=== PATIENT | male | born 1955 | race Caucasian/White ===

== ENCOUNTER 2018-08-20 12:38 | Outpatient (RCR) | payer OTHER ==
[2018-08-20 13:24] LABS: BASOPHILS % (AUTO) 0 % (0-10); EOSINOPHILS # (AUTO) 0.2 10^3/uL (0.0-0.3); EOSINOPHILS % (AUTO) 1 % (0-10); HEMATOCRIT 40 % (40-54); LYMPHOCYTES % (AUTO) 33 % (12-44); MEAN CORPUSCULAR HEMOGLOBIN 31 PG (25-34); MEAN CORPUSCULAR HGB CONC 32 G/DL (32-36); MEAN CORPUSCULAR VOLUME 96 FL (80-99); MONOCYTES # (AUTO) 1.3 X 10^3 (0.0-1.0); MONOCYTES % (AUTO) 11 % (0-12); NEUTROPHILS # (AUTO) 6.5 X 10^3 (1.8-7.8); NEUTROPHILS % (AUTO) 55 % (42-75); PLATELET COUNT 193 10^3/uL (130-400); RED CELL DISTRIBUTION WIDTH 17.6 % (10.0-14.5)
[2018-08-20 13:36] LABS: ALANINE AMINOTRANSFERASE 28 U/L (0-55); ALBUMIN 3.8 GM/DL (3.2-4.5); ALKALINE PHOSPHATASE 125 U/L (40-136); BILIRUBIN,TOTAL 1.5 MG/DL (0.1-1.0); BUN/CREATININE RATIO 18; CALCIUM 9.3 MG/DL (8.5-10.1); CARBON DIOXIDE 27 MMOL/L (21-32); CHLORIDE 101 MMOL/L (98-107); CREATININE SERUM 0.71 MG/DL (0.60-1.30); GFR ESTIMATED > 60; GLUCOSE 87 MG/DL (70-105); POTASSIUM 3.3 MMOL/L (3.6-5.0); SODIUM 137 MMOL/L (135-145)
[2018-09-21] MEDS ORDERED: METO50TA15 PO (09:43)
[2018-09-21] MEDS ORDERED: ASPI-586 PO (09:43)
[2018-09-21] MEDS ORDERED: GABA-488 PO (09:43)
[2018-09-21] MEDS ORDERED: SENN1TAB93 PO (09:43)
[2018-09-21] MEDS ORDERED: CYCL5TAB PO (09:43)
[2018-09-21] MEDS ORDERED: POTA-51 PO (09:43)
[2018-09-21] MEDS ORDERED: ATOR40TA70 PO (09:43)
[2018-09-21] MEDS ORDERED: FURO40TA4 PO (09:43)
[2018-09-21] MEDS ORDERED: TRAM50TA2 PO (09:43)
[2018-09-21] MEDS ORDERED: PANT40TA3 PO (09:43)
[2018-09-21] MEDS ORDERED: LEVO200T6 PO (09:43)
[2018-09-21] MEDS ORDERED: ACET-93 PO (09:43)
[2018-09-21] MEDS ORDERED: HYDR12.56 PO (09:43)
[2018-09-21] MEDS ORDERED: CEPH-507 PO (12:42)
== END 2018-11-18 | disposition home or self-care (01) ==
LOC: ONC 12:38
PROVIDERS: ATTEND Internal Medicine Hematology & Oncology
DX: I25.10 Atherosclerotic heart disease of native coronary artery without angina pectoris (principal); D63.8 Anemia in other chronic diseases classified elsewhere; Z89.511 Acquired absence of right leg below knee; Z89.512 Acquired absence of left leg below knee; Z86.718 Personal history of other venous thrombosis and embolism; Z79.82 Long term (current) use of aspirin; Z79.899 Other long term (current) drug therapy; Z87.891 Personal history of nicotine dependence; Z95.810 Presence of automatic (implantable) cardiac defibrillator
CPT/HCPCS: 36415; 80053; 82728; 83540; 85025; 99214

== ENCOUNTER 2018-09-21 08:57 | Day surgery (SDC) | payer OTHER ==
[~2018-09-21] VITALS: Ht 190.5 cm; Wt 109.5 kg
[2018-09-21] VITALS (11 sets, daily range): BP systolic 82–116; BP diastolic 41–82
[2018-09-21] MEDS ORDERED: HEParin (CATH LAB) 1,000 ML IV ONE (09:00)
[2018-09-21] MEDS ORDERED: NS IV 1000 ML 1,000 ML ONE ×2 (09:00→17:41)
[2018-09-21] MEDS ORDERED: LIDOCAINE 1% INJ 20 ML 20 ML VIAL ONE ×2 (09:00)
[2018-09-21] MEDS ORDERED: NS IV 1000 ML 1,000 ML IV SCH (09:02)
[2018-09-21] MEDS ORDERED: BACITRACIN INJECTION 50,000 UNIT, SODIUM CHLORIDE 0.9% IRRIGATIO 500 ML IR ONE ×2 (09:15)
[2018-09-21] MEDS ORDERED: BACITRACIN 50000 UNITS/500 ML NS IR ONE ×2 (09:30)
[2018-09-21] MEDS ORDERED: CYCL5TAB PO (09:43)
[2018-09-21] MEDS ORDERED: GABA-488 PO (09:43)
[2018-09-21] MEDS ORDERED: POTA-51 PO (09:43)
[2018-09-21] MEDS ORDERED: METO50TA15 PO (09:43)
[2018-09-21] MEDS ORDERED: ASPI-586 PO (09:43)
[2018-09-21] MEDS ORDERED: LEVO200T6 PO (09:43)
[2018-09-21] MEDS ORDERED: TRAM50TA2 PO (09:43)
[2018-09-21] MEDS ORDERED: PANT40TA3 PO (09:43)
[2018-09-21] MEDS ORDERED: SENN1TAB93 PO (09:43)
[2018-09-21] MEDS ORDERED: FURO40TA4 PO (09:43)
[2018-09-21] MEDS ORDERED: HYDR12.56 PO (09:43)
[2018-09-21] MEDS ORDERED: ATOR40TA70 PO (09:43)
[2018-09-21] MEDS ORDERED: ACET-93 PO (09:43)
[2018-09-21] MEDS ORDERED: ceFAZolin INJECTION 2,000 MG ONE (09:46)
[2018-09-21] MEDS ORDERED: NS (IVPB) 50 ML ONE (09:46)
[2018-09-21 09:47] LABS: INR 1.1 (0.8-1.4); PROTHROMBIN TIME PATIENT 14.2 SEC (12.2-14.7)
[2018-09-21] MEDS ORDERED: fentaNYL INJECTION 100 MCG/2 ML AMP ONE ×2 (09:47→10:42)
[2018-09-21] MEDS ORDERED: MIDAZOLAM 5 MG/5 ML (VERSED) VIAL ONE ×2 (09:47→10:39)
[2018-09-21 09:50] LABS: ALANINE AMINOTRANSFERASE 38 U/L (0-55); ALBUMIN 3.9 GM/DL (3.2-4.5); ALKALINE PHOSPHATASE 106 U/L (40-136); BILIRUBIN,TOTAL 1.2 MG/DL (0.1-1.0); BUN/CREATININE RATIO 16; CALCIUM 10.1 MG/DL (8.5-10.1); CARBON DIOXIDE 25 MMOL/L (21-32); CHLORIDE 100 MMOL/L (98-107); CREATININE SERUM 0.75 MG/DL (0.60-1.30); GFR ESTIMATED > 60; GLUCOSE 129 MG/DL (70-105); POTASSIUM 3.8 MMOL/L (3.6-5.0); SODIUM 135 MMOL/L (135-145); TOTAL PROTEIN 7.2 GM/DL (6.4-8.2)
[2018-09-21 10:34] LABS: BASOPHILS % (AUTO) 0 % (0-10); EOSINOPHILS # (AUTO) 0.1 10^3/uL (0.0-0.3); EOSINOPHILS % (AUTO) 1 % (0-10); HEMATOCRIT 45 % (40-54); HEMOGLOBIN 15.1 G/DL (13.3-17.7); LYMPHOCYTES # (AUTO) 3.1 X 10^3 (1.0-4.0); LYMPHOCYTES % (AUTO) 28 % (12-44); MEAN CORPUSCULAR HEMOGLOBIN 30 PG (25-34); MEAN CORPUSCULAR HGB CONC 33 G/DL (32-36); MEAN CORPUSCULAR VOLUME 91 FL (80-99); MEAN PLATELET VOLUME 10.8 FL (7.4-10.4); MONOCYTES # (AUTO) 0.9 X 10^3 (0.0-1.0); MONOCYTES % (AUTO) 8 % (0-12); NEUTROPHILS # (AUTO) 6.7 X 10^3 (1.8-7.8); NEUTROPHILS % (AUTO) 62 % (42-75); PLATELET COUNT 184 10^3/uL (130-400); RED CELL DISTRIBUTION WIDTH 14.9 % (10.0-14.5); WHITE BLOOD COUNT 10.8 10^3/uL (4.3-11.0)
[2018-09-21 10:58] LABS: EOSINOPHILS % (MANUAL) 1 %; LYMPHOCYTES % (MANUAL) 27 %; MONOCYTES % (MANUAL) 9 %; NEUTROPHILS % (MANUAL) 63 %; RBC MORPH NORMAL
[2018-09-21] MEDS ORDERED: NEO/POLY/BAC (NEOSPORIN) OINT 15 GM TUBE ONE (11:04)
[2018-09-21] MEDS ORDERED: proPOfol 200 MG/20 ML (DIPRIVAN) VIAL IV ONE (11:05)
--- NOTE | 2018-09-21 12:17 | Cardiac Procedure Note-CS/ASA ---
Pre-Procedure Note Pre-Op Procedure Note H&P Reviewed The H&P was reviewed, patient examined and no changes noted. Date H&P Reviewed: September 21, 2018 Time H&P Reviewed: 09:00 Conscious Sedation Pre-Proced Time 09:00 ASA Score 3 For ASA 3 and 4: Consider anesthesia and medical clearance. Also, for patients with a history of failed moderate sedation consider anesthesia. Airway Lungs Heart ASA score ASA 1: a normal healthy patient ASA 2: a patient with a mild systemic disease (mid diabetes, controlled hypertension, obesity ASA 3: a patient with a severe systemic disease that limits activity (angina, COPD, prior Myocardial infarction) ASA 4: a patient with an incapacitating disease that is a constant threat to life (CHF, renal failure) ASA 5: a moribund patient not expected to survive 24 hrs. (ruptured aneurysm) ASA 6: a declared brain- patient whose organs are being harvested. For emergent operations, add the letter E after the classification Mallampati Classification Grade 1 Sedation Plan Analgesia, Amnesia, Plan communicated to team members, Discussed options with patient/fam, Discussed risks with patient/fam The patient is an appropriate candidate to undergo the planned procedure, sedation, and anesthesia. The patient immediately re-assessed prior to indication. Pedro Pablo GRANADOS MD September 21, 2018 12:17
--- NOTE | 2018-09-21 12:31 | Anesthesia-Procedure Note ---
Procedures/Interventions Procedure Start/Stop/Diagnosis Date of Procedure: September 21, 2018 Start Time: 12:00 Stop Time: 12:10 SAMUEL/Cardioversion Anesthesia Type: MAC ASA Class: 3 Medications propofol 40 mg IV Monitors and Equipment: Continuous EKG, End Tidal CO2, IV, Pulse Oximeter WELLINGTON ELKINS CRNA September 21, 2018 12:31
--- NOTE | 2018-09-21 12:36 | ICD Implantation ---
Single Chamber ICD Implant DATE OF SERVICE: 09/21/2018 ICD lead extraction, new RV ICD lead placement. CARDIAC ORTHOPEDICS NURSE: Ina Orta MD INDICATION: RV ICD lead dysfunction/possible dislodgment. PREOPERATIVE DIAGNOSES: 1. History of sustained VT. 2. cardiomyopathy. 3. RV ICD lead dysfunction/possible dislodgment. POSTOPERATIVE DIAGNOSES: 1. RV ICD lead extraction and placement of a new RV ICD lead. HISTORY: This is a 63-year-old gentleman with CABG, mitral valve replacement, sustained VT, cardiomyopathy, status post ABSTRACT MANAGER ICD in [place] in June 2018. Recently loss of capture of the RV ICD lead was noted. PROCEDURE PERFORMED: 1. RV ICD lead revision. 2. Pocket revision for ICD. 3. RV ICD lead extraction. 4. New RV ICD lead implantation. 5. DFT testing. COMPLICATIONS: None. ESTIMATED BLOOD LOSS: 20 mL. SPECIMENS: None. ANESTHESIA: Conscious sedation. ORAL ANTICOAGULATION: None. FLUOROSCOPY TIME: 11 minutes. FLUOROSCOPY DOSE: 104 mgy. CONTRAST DOSE: None. PROCEDURE DETAILS: After all the questions were answered, an informed consent was taken. All the risks and complication were explained in detail. The patient was brought to the EP lab. The patient's right and left chest was prepped and draped in the usual sterile fashion. A 2-inch horizontal incision was made 1 cm below the clavicle and dissection carried down to the pectoralis fascia. IV antibiotics were administered prior to first incision. Pocket revision was done. The RV ICD lead was disconnected from the ABSTRACT MANAGER device. The screw was undeployed and the lead was placed in at least 3 different positions however lead dislodgment happened at least once. Other times we found poor sensing and poor RV capture. Therefore we decided to extract the RV ICD lead and put a new ICD lead. The screw was undeployed and under fluoroscopic guidance the ICD lead was explanted. The new ICD lead is a single-coiled ICD lead. The RV lead was inserted across the tricuspid valve to an apical septal portion of the RV. The lead position was checked in [place] and MINOR view. The screw was deployed and lead connected to the programmer operator numerical control. Good sensing and pacing thresholds were obtained. Diaphragmatic pacing was ruled out. The lead was secured with 2-0 Vicryl nonabsorbable sutures. The lead was secured to the underlying muscle and fascia. The new ICD lead was attached to the previous ABSTRACT MANAGER device. A Tyrex antibiotic cover was placed. The device and it was placed in the pocket. Aggressive irrigation with normal saline solution was done. Interrogation of the device revealed good integrity of the leads and connection. The wound was closed using 2 layers. The first layer was an interrupted 2-0 Vicryl. The second layer was an uninterrupted 4-0 Vicryl suture. Half inch Steri-Strips and a small dressing was then applied to the wound. DFT testing was done with anesthesia support. The induction mechanism was a T- shock at 310 ms with 0.6 J.. Good sensing of VF and successful 25 J shock. Charge time 6.2 seconds. Patient tolerated procedure well and did not have any complication. DEVICE INFORMATION: ABSTRACT MANAGER D DTMA 100 CLARIA MRI QUAD CRTD . Model [id number], [id number]. Done 07/10/2018. Right atrial, model number [id number], length 52, serial number [id number], [employer], implant 07/10/2018. Old RV lead product number 6935M 62, serial number [id number], implant 07/10/2018. LV lead model number [id number], length 88, serial number [id number], implant 07/10/2018. New RV lead model number 6935M 62, length 62, serial number [id number], implant date 09/21/2018. INTRAOPERATIVE DEVICE TESTING: RV capture 0.5 V at 0.5 ms. Impedance 672 ohms. R-wave 8.2 MV. DEVICE INTERROGATION IMMEDIATELY POSTOP: RA, P-wave 1.6 mV, pacing impedance 513 ohms, threshold 0.5 V is 0.5 ms. RV, R wave 11.6 mV, impedance 513 ohms, threshold 0.5 V at 0.5 ms. LV impedance 532 ohms. Pacing threshold 1.0 at 0.4 ms. PLAN: The patient will be observed for 23 hours. We will continue with two more dosages of IV antibiotics. We will check a chest x-ray and interrogate the device in the morning. An EKG will be done as well. If everything checks out, the patient will be discharged tomorrow. Ina Orta MD, RS, CCDS Cardiac Electrophysiology Pedro Pablo ORTA MD September 21, 2018 12:36
--- NOTE | 2018-09-21 12:41 | Cardiology Discharge Summary ---
Diagnosis/Chief Complaint Date of Admission 09/21/2018 Date of Discharge 09/22/2018 Admission Diagnosis RV lead dislodgment/RV lead dysfunction Final/Discharge Diagnosis RV ICD lead placement. Cardiomyopathy, CAD, Mitral valve replacement Chief Complaint/HPI Chief Complaint/HPI This is a 63-year-old gentleman with CABG, mitral valve replacement, sustained VT, cardiomyopathy, status post CEMENT WORKER ICD in [place] in June 2018. Recently loss of capture of the RV ICD lead was noted. Discharge Summary Procedures Old RV ICD lead explantation. RV ICD lead implanted. Pocket revision. DFT testing successful. Discharge Physical Examination Unremarkable. Hospital Course Was the Problem List Reviewed?: Yes Stable. Pending Labs Laboratory Tests 09/21/18 09:22: White Blood Count 10.8, Red Blood Count 4.99, Hemoglobin 15.1, Hematocrit 45, Mean Corpuscular Volume 91, Mean Corpuscular Hemoglobin 30, Mean Corpuscular Hemoglobin Concent 33, Red Cell Distribution Width 14.9, Platelet Count 184, Mean Platelet Volume 10.8, Neutrophils (%) (Auto) 62, Lymphocytes (%) (Auto) 28, Monocytes (%) (Auto) 8, Eosinophils (%) (Auto) 1, Basophils (%) (Auto) 0, Neutrophils # (Auto) 6.7, Lymphocytes # (Auto) 3.1, Monocytes # (Auto) 0.9, Eosinophils # (Auto) 0.1, Basophils # (Auto) 0.0, Neutrophils % (Manual) 63, Lymphocytes % (Manual) 27, Monocytes % (Manual) 9, Eosinophils % (Manual) 1, Blood Morphology Comment NORMAL, Prothrombin Time 14.2, INR Comment 1.1, Activated Partial Thromboplast Time 35, Sodium Level 135, Potassium Level 3.8, Chloride Level 100, Carbon Dioxide Level 25, Anion Gap 10, Blood Urea Nitrogen 12, Creatinine 0.75, Estimat Glomerular Filtration Rate > 60, BUN/Creatinine Ratio 16, Glucose Level 129, Calcium Level 10.1, Corrected Calcium 10.2, Total Bilirubin 1.2, Aspartate Amino Transf (AST/SGOT) 49, Alanine Aminotransferase (ALT/SGPT) 38, Alkaline Phosphatase 106, Total Protein 7.2, Albumin 3.9 Discussion & Recommendations Discussion Discharge instructions were discussed at length with the patient. Follow up appt.: Follow-up with Dr. Orta's RN in one week for wound check. Follow up with Dr Orta in 5-6 weeks for device check. Dicharge Diet: Cardiac Diet Activity as Tolerated: Yes Home Medications Reviewed patient Home Medication Reconciliation performed by pharmacy medication reconciliations maintenance shop technician and/or nursing. Patients Allergies have been reviewed. Discharge Home Medications: Reviewed and agree with Discharge Medication list on patient's Discharge Instruction sheet Condition at discharge stable Instructions to patient/family Discussed. Pedro Pablo ORTA MD September 21, 2018 12:41
[2018-09-21] MEDS ORDERED: CEPH-507 PO (12:42)
--- NOTE | 2018-09-21 12:43 | Discharge Inst-Post Device ---
Discharge Inst-Post Device Follow up/Plan Dr Orta's RN in one week for wound check. Dr Orta in 5-6 weeks for device interrogation. Heart Healthy Diet Do not lift arm on side of device placement above head for 4 weeks. Do not push and pull heavy objects for 4 weeks. Activity as tolerated. Leave dressing on until follow up at the office. Pedro Pablo ORTA MD September 21, 2018 12:42
[2018-09-21] MEDS ORDERED: PATIENT MAY USE OWN MEDS, ALL PO SCH (12:45)
[2018-09-21] MEDS: NS IV 1000 ML 1,000 ML IV SCH ×2 (14:30→17:57)
--- NOTE | 2018-09-21 16:36 | Diagnostic Imaging Report ---
INDICATION: Status post ICD lead implantation. TIME OF EXAM: 1:02 p.m. COMPARISON: No prior studies are available for comparison. FINDINGS: Changes of median sternotomy are noted. Cardiac defibrillator is in place. There is no pneumothorax. The lungs are clear. IMPRESSION: ICD placement. No pneumothorax is detected. Dictated by: Dictated on workstation # [id number]
[2018-09-21] MEDS ORDERED: WATER (STERILE) FOR INJECTION 10 ML ONE (17:46)
[2018-09-21] MEDS ORDERED: ceFAZolin INJECTION 1,000 MG ONE (17:46)
[2018-09-21] MEDS: ceFAZolin INJECTION 1,000 MG in WATER (STERILE) FOR INJECTION 10 ML IV SCH (17:56)
[2018-09-21] MEDS ORDERED: ACETAMINOPHEN 500 MG TAB (TYLENOL) PO PRN (20:00)
[2018-09-21] MEDS: PANTOPRAZOLE 40 MG (PROTONIX) TAB PO SCH (20:50)
[2018-09-21] MEDS: GABAPENTIN 300 MG (NEURONTIN) CAP PO SCH (20:51)
[2018-09-21] MEDS: SENNA W/DOCUSATE (SENOKOT S) TABLET PO SCH (20:53)
[2018-09-21] MEDS ORDERED: ATORVASTATIN 40 MG (LIPITOR) TABLET PO SCH (21:00)
--- NOTE | 2018-09-21 23:19 | NUR ---
PT ARM PLACED IN SLING ORDERED
[2018-09-22] VITALS: BP 107/70
[2018-09-22] MEDS ORDERED: WATER (STERILE) FOR INJECTION 10 ML ONE (03:04)
[2018-09-22] MEDS ORDERED: ceFAZolin INJECTION 1,000 MG ONE (03:04)
[2018-09-22] MEDS: ceFAZolin INJECTION 1,000 MG in WATER (STERILE) FOR INJECTION 10 ML IV SCH (03:15)
[2018-09-22 03:48] LABS: HEMOGLOBIN 13.1 G/DL (13.3-17.7); MEAN PLATELET VOLUME 10.2 FL (7.4-10.4); RED CELL DISTRIBUTION WIDTH 14.8 % (10.0-14.5); WHITE BLOOD COUNT 8.6 10^3/uL (4.3-11.0)
[2018-09-22 04:00] VITALS: BP 115/75
[2018-09-22 04:10] LABS: ALANINE AMINOTRANSFERASE 29 U/L (0-55); ALBUMIN 3.2 GM/DL (3.2-4.5); ALKALINE PHOSPHATASE 96 U/L (40-136); BILIRUBIN,TOTAL 0.8 MG/DL (0.1-1.0); BUN/CREATININE RATIO 19; CARBON DIOXIDE 23 MMOL/L (21-32); CHLORIDE 105 MMOL/L (98-107); CREATININE SERUM 0.69 MG/DL (0.60-1.30); GFR ESTIMATED > 60; GLUCOSE 116 MG/DL (70-105); POTASSIUM 3.7 MMOL/L (3.6-5.0); SODIUM 139 MMOL/L (135-145)
--- NOTE | 2018-09-22 06:42 | NUR ---
pt refused k-dur, pt stated that he would take it when he gets home
[2018-09-22] MEDS ORDERED: KCL 20 MEQ TAB (K-DUR) PO SCH (07:00)
[2018-09-22 08:00] VITALS: BP 118/79
--- NOTE | 2018-09-22 08:40 | Cardiology Progress Note ---
Subjective Date Seen by Provider: September 22, 2018 Time Seen by Provider: 08:38 Subjective/Events-last exam patient is laying down in bed, site is healing well. No new complaint. Review of Systems General: No Chills, No Night Sweats, No Fatigue, No Malaise, No Appetite, No Other HEENT: No Head Aches, No Visual Changes, No Eye Pain, No Ear Pain, No Dysphasia, No Sinus Congestion, No Post Nasal Drip, No Sore Throat, No Other Pulmonary: No Dyspnea, No Cough, No Pleuritic Chest Pain, No Other Cardiovascular: No: Chest Pain, Palpitations, Orthopnea, Paroxysmal Noc. Dyspnea, Edema, Lt Headedness, Other Objective-Cardiology Exam Last Set of Vital Signs Vital Signs 09/21/18 09/22/18 09/22/18 13:10 04:00 07:11 Temp 98.4 Pulse 92 Resp 17 B/P (MAP) 115/75 (88) Pulse Ox 91 O2 Delivery Nasal Cannula O2 Flow Rate 1.00 Capillary Refill : Less Than 3 Seconds I&O Intake and Output 09/22/18 00:00 Intake Total 1210 ml Output Total 950 ml Balance 260 ml Intake Oral 200 ml IV Total 1010 ml Output Urine Total 950 ml General: Alert, Oriented X3, Cooperative HEENT: Atraumatic, PERRLA Neck: Supple, No JVD, No Thyromegaly Lungs: Clear to Auscultation, Normal Air Movement Heart: Regular Rate, Normal S1, Normal S2, No Murmurs, Other (systolic murmur) Abdomen: Normal Bowel Sounds, Soft, No Tenderness, No Hepatosplenomegaly, No Masses Extremities: No Edema, No Tenderness/Swelling Skin: No Breakdown Neuro: Normal Speech, Normal Tone, Sensation Intact Psych/Mental Status: Mental Status NL, Mood NL Results Lab Laboratory Tests 09/21/18 09:22 09/22/18 03:31 A/P-Cardiology Admission Diagnosis Coronary artery disease Congestive heart failure, chronic compensated left ventricular systolic dysfunction Ventricular tachycardia Cardiac pacemaker Assessment/Plan Sustained ventricular tachycardia, history of TATT[employer] AND B[employer] ARTIST ICD, lead malfunction, status post lead replacement with good results, ICD was interrogated today. Cardiomyopathy, chronic compensated left ventricular systolic dysfunction, followed by Dr. Orta Coronary artery disease history of CABG Hypertension, continue current medication Site is healing well, visited with the patient and examined him and arranged for follow-up with CHRISTOPHER Smith MD September 22, 2018 08:40
[2018-09-22] MEDS ORDERED: HYDROCHLOROTHIAZIDE 12.5 MG (HCTZ) CAP PO SCH (09:00)
[2018-09-22] MEDS ORDERED: ASPIRIN 81 MG CHEW (CHILDREN'S ASA) PO SCH (09:00)
[2018-09-22] MEDS ORDERED: FUROSEMIDE 40 MG (LASIX) TAB PO SCH (09:00)
[2018-09-22] MEDS: PANTOPRAZOLE 40 MG (PROTONIX) TAB PO SCH (09:17)
[2018-09-22] MEDS: GABAPENTIN 300 MG (NEURONTIN) CAP PO SCH (09:18)
[2018-09-22] MEDS: SENNA W/DOCUSATE (SENOKOT S) TABLET PO SCH (09:21)
[2018-09-22 10:00] VITALS: BP 111/105
[2018-09-22] MEDS ORDERED: meTOprolol TARTRATE 50 MG (LOPRESSOR) TAB PO SCH (12:00)
== END 2018-09-22 10:11 | disposition home or self-care (01) ==
LOC: CATH 08:57 → ICU 13:09 → CATH 09-22 10:11
PROVIDERS: ATTEND Internal Medicine Interventional Cardiology
DX: T82.120A Displacement of cardiac electrode, initial encounter (principal); I25.10 Atherosclerotic heart disease of native coronary artery without angina pectoris; I42.9 Cardiomyopathy, unspecified; I48.0 Paroxysmal atrial fibrillation; I25.2 Old myocardial infarction; Z95.2 Presence of prosthetic heart valve; Z95.1 Presence of aortocoronary bypass graft; Z95.5 Presence of coronary angioplasty implant and graft; Z87.891 Personal history of nicotine dependence; Z79.82 Long term (current) use of aspirin; Z79.899 Other long term (current) drug therapy
CPT/HCPCS: 36415; 71045; 80053; 85007; 85027; 85610; 85730; 87081; 93005; 93641

== ENCOUNTER 2021-05-13 13:06 | Outpatient (RCR) | payer MEDICARE, OTHER ==
[~2021-05-13 13:06] MED LIST: ACET-93 PO; ASPI-586 PO; ATOR40TA70 PO; CEPH-507 PO; CYCL5TAB PO; FURO40TA4 PO; GABA-488 PO; HYDR12.56 PO; LEVO200T6 PO; METO50TA15 PO; PANT40TA52 PO; POTA-51 PO; SENN1TAB93 PO; TRM50T PO
[2021-05-13 14:45] LABS: BASOPHILS # (AUTO) 0.1 10^3/uL (0.0-0.1); BASOPHILS % (AUTO) 1 % (0-10); EOSINOPHILS # (AUTO) 0.2 10^3/uL (0.0-0.3); EOSINOPHILS % (AUTO) 2 % (0-10); HEMATOCRIT 45 % (40-54); HEMOGLOBIN 14.7 g/dL (13.3-17.7); LYMPHOCYTES # (AUTO) 3.3 10^3/uL (1.0-4.0); LYMPHOCYTES % (AUTO) 34 % (12-44); MEAN CORPUSCULAR HEMOGLOBIN 27 pg (25-34); MEAN CORPUSCULAR HGB CONC 33 g/dL (32-36); MEAN CORPUSCULAR VOLUME 84 fL (80-99); MEAN PLATELET VOLUME 10.3 fL (9.0-12.2); MONOCYTES # (AUTO) 0.6 10^3/uL (0.0-1.0); MONOCYTES % (AUTO) 7 % (0-12); NEUTROPHILS # (AUTO) 5.4 10^3/uL (1.8-7.8); NEUTROPHILS % (AUTO) 56 % (42-75); PLATELET COUNT 241 10^3/uL (130-400); WHITE BLOOD COUNT 9.7 10^3/uL (4.3-11.0)
[2021-05-13 15:07] LABS: ALBUMIN 3.8 GM/DL (3.2-4.5); BILIRUBIN,TOTAL 1.1 MG/DL (0.1-1.0); CALCIUM 8.8 MG/DL (8.5-10.1); CREATININE SERUM 0.76 MG/DL (0.60-1.30); POTASSIUM 4.3 MMOL/L (3.6-5.0)
== END 2021-05-31 | disposition home or self-care (01) ==
LOC: ONC 13:06
PROVIDERS: ATTEND Internal Medicine Hematology & Oncology
DX: C67.9 Malignant neoplasm of bladder, unspecified (principal); E03.9 Hypothyroidism, unspecified; I25.10 Atherosclerotic heart disease of native coronary artery without angina pectoris; Z80.52 Family history of malignant neoplasm of bladder
CPT/HCPCS: 80053; 84443; 85025; G0463; 99214

== ENCOUNTER → 2021-05-24 | Outpatient (CLI) | payer MEDICARE ==
[~2021-05-24] MED LIST changes: +CATHETER FLUSH 10 ML SYR IV PRN; +HOLD METFORMIN - RECEIVED CONTRAST 20 ML VIAL IV SCH; +IOHEXOL 350 MG/ML 100 ML (OMNIPAQUE 350) VIAL IV ONE; +NS 100 ML (IVPB) BAG IV ONE
--- NOTE | 2021-05-24 13:30 | Diagnostic Imaging Report ---
EXAMINATION: CT chest, abdomen and pelvis with intravenous contrast. TECHNIQUE: Multiple contiguous axial images were obtained through the chest, abdomen and pelvis after the uneventful administration of intravenous contrast. All CT scans use one or more of the following dose optimizing techniques: automated exposure control, MA and/or KvP adjustment based on patient size and exam type or iterative reconstruction. HISTORY: MALIGNANT NEOPLASM OF URINARY BLADDER COMPARISON: None available. FINDINGS: Thyroid: The thyroid gland is nonvisualized. Mediastinum: Heart size is normal without significant pericardial effusion. Calcifications of the aorta and coronary vessels. Thoracic aorta is normal in caliber. Left-sided cardiac device is present. There are a few prominent mediastinal lymph nodes which are not pathologically enlarged. Lungs and airways: There are background emphysematous changes of the lungs without consolidation, pleural effusion, or pneumothorax. There is no suspicious pulmonary lesion. The airways are normal. Solid organs: The liver is normal without focal lesion. The gallbladder is normal. There is no biliary ductal dilation. Pancreas is normal. Spleen is normal. Adrenal glands are normal. Multiple bilateral renal cysts are present which require no follow-up. There is no hydronephrosis. Bowel: The stomach and small bowel are normal without obstruction. The colon is unremarkable. No findings of acute appendicitis. Peritoneum: There is no intraperitoneal free fluid or free air. No suspicious lymphadenopathy. Vasculature: Calcification of the aorta without aneurysm. Musculoskeletal: Degenerative changes of the spine without suspicious osseous lesion or compression fracture. Surgical changes from CABG. Pelvis: The prostate gland is normal. The urinary bladder is normal. IMPRESSION: 1. No findings of metastatic disease within the chest, abdomen, or pelvis. Dictated by: Dictated on workstation # [id number]
== END ==
LOC: RAD 12:15
PROVIDERS: ATTEND Internal Medicine Hematology & Oncology
DX: C67.9 Malignant neoplasm of bladder, unspecified (principal)
CPT/HCPCS: 71260; 74177

== ENCOUNTER → 2021-06-28 | Outpatient (RCR) | payer MEDICARE ==
[2021-06-01 14:41] LABS: CREATININE SERUM 0.78 MG/DL (0.60-1.30)
[~2021-06-28] MED LIST changes: -CATHETER FLUSH 10 ML SYR IV PRN; -HOLD METFORMIN - RECEIVED CONTRAST 20 ML VIAL IV SCH; -IOHEXOL 350 MG/ML 100 ML (OMNIPAQUE 350) VIAL IV ONE; -NS 100 ML (IVPB) BAG IV ONE
== END | disposition home or self-care (01) ==
LOC: ONC 06-01 12:55
PROVIDERS: ATTEND Internal Medicine Hematology & Oncology
DX: Z51.0 Encounter for antineoplastic radiation therapy (principal); C67.9 Malignant neoplasm of bladder, unspecified; E03.9 Hypothyroidism, unspecified; I25.10 Atherosclerotic heart disease of native coronary artery without angina pectoris
CPT/HCPCS: 82565; 84520; G0463; 77300; 77301; 77334; 77336; 77338; 77386; 99204

== ENCOUNTER → 2021-07-29 | Outpatient (RCR) | payer MEDICARE | END | disposition home or self-care (01) | LOC: ONC 06-29 10:37 | PROVIDERS: ATTEND Internal Medicine Hematology & Oncology | DX: Z51.0 Encounter for antineoplastic radiation therapy (principal); C67.0 Malignant neoplasm of trigone of bladder; E03.9 Hypothyroidism, unspecified; I25.10 Atherosclerotic heart disease of native coronary artery without angina pectoris | CPT/HCPCS: 77386; G0463; 77300; 77336; 77338; 77385 ==

== ENCOUNTER 2021-08-19 10:45 | Outpatient (RCR) | payer MEDICARE, MEDICAID | END 2021-08-28 | disposition home or self-care (01) | LOC: ONC 10:45 | PROVIDERS: ATTEND Internal Medicine Hematology & Oncology | DX: Z51.0 Encounter for antineoplastic radiation therapy (principal); C67.0 Malignant neoplasm of trigone of bladder; E03.9 Hypothyroidism, unspecified; I25.10 Atherosclerotic heart disease of native coronary artery without angina pectoris | CPT/HCPCS: 77336; 77386 ==

== ENCOUNTER 2021-09-06 13:57 | Outpatient (RCR) | payer MEDICARE, MEDICAID ==
[2021-09-06 14:25] LABS: BASOPHILS % (AUTO) 0 % (0-10); EOSINOPHILS # (AUTO) 0.3 10^3/uL (0.0-0.3); EOSINOPHILS % (AUTO) 5 % (0-10); HEMATOCRIT 44 % (40-54); HEMOGLOBIN 14.3 g/dL (13.3-17.7); LYMPHOCYTES # (AUTO) 1.6 10^3/uL (1.0-4.0); LYMPHOCYTES % (AUTO) 23 % (12-44); MEAN CORPUSCULAR HEMOGLOBIN 29 pg (25-34); MEAN CORPUSCULAR HGB CONC 33 g/dL (32-36); MEAN CORPUSCULAR VOLUME 87 fL (80-99); MEAN PLATELET VOLUME 9.5 fL (9.0-12.2); MONOCYTES # (AUTO) 0.5 10^3/uL (0.0-1.0); MONOCYTES % (AUTO) 8 % (0-12); NEUTROPHILS # (AUTO) 4.4 10^3/uL (1.8-7.8); NEUTROPHILS % (AUTO) 64 % (42-75); PLATELET COUNT 206 10^3/uL (130-400); WHITE BLOOD COUNT 6.9 10^3/uL (4.3-11.0)
[2021-09-06 14:40] LABS: ALBUMIN 3.9 GM/DL (3.2-4.5); POTASSIUM 4.3 MMOL/L (3.6-5.0)
[2021-09-06 14:42] LABS: CALCIUM 9.2 MG/DL (8.5-10.1)
[2021-09-06 14:43] LABS: TOTAL PROTEIN 7.2 GM/DL (6.4-8.2)
[2021-09-06 14:45] LABS: BILIRUBIN,TOTAL 1.4 MG/DL (0.1-1.0)
[2021-09-06 14:47] LABS: CREATININE SERUM 0.84 MG/DL (0.60-1.30)
== END 2021-09-28 | disposition home or self-care (01) ==
LOC: ONC 13:57
PROVIDERS: ATTEND Internal Medicine Hematology & Oncology
DX: C61 Malignant neoplasm of prostate (principal); C67.9 Malignant neoplasm of bladder, unspecified; E03.9 Hypothyroidism, unspecified; I25.10 Atherosclerotic heart disease of native coronary artery without angina pectoris
CPT/HCPCS: 80053; 85025; G0463; 36415; 99213

== ENCOUNTER → 2021-10-18 | Outpatient (CLI) | payer MEDICARE, MEDICAID ==
[~2021-10-18] MED LIST changes: +CATHETER FLUSH 10 ML SYR IV PRN; +HOLD METFORMIN - RECEIVED CONTRAST 20 ML VIAL IV SCH; +IOHEXOL 350 MG/ML 100 ML (OMNIPAQUE 350) VIAL IV ONE; +NS 100 ML (IVPB) BAG IV ONE
--- NOTE | 2021-10-18 14:10 | Diagnostic Imaging Report ---
EXAMINATION: CT chest, abdomen and pelvis with intravenous contrast. TECHNIQUE: Multiple contiguous axial images were obtained through the chest, abdomen and pelvis after the uneventful administration of intravenous contrast. All CT scans use one or more of the following dose optimizing techniques: automated exposure control, MA and/or KvP adjustment based on patient size and exam type or iterative reconstruction. HISTORY: Prostate cancer COMPARISON: 05/24/2021 FINDINGS: Thyroid: The visualized thyroid gland is normal. Mediastinum: Heart size is normal without significant pericardial effusion. Calcifications of the aorta and coronary vessels. Thoracic aorta is normal in caliber. There are a couple of prominent mediastinal lymph nodes which are not pathologically enlarged but not significantly changed from 05/24/2021. Left-sided cardiac device is present. Lungs and airways: There are background emphysematous changes of the lungs without consolidation, pleural effusion, or pneumothorax. No suspicious pulmonary lesion. There is atelectasis within the dependent lungs. The airways are normal. Solid organs: The liver is normal without focal lesion. The gallbladder is normal. There is no biliary ductal dilation. Pancreas is normal. Spleen is normal. Adrenal glands are normal. There are left renal cysts which require no follow-up. No hydronephrosis. Bowel: Surgical changes of the stomach. No bowel obstruction. There is diffuse wall thickening of the left hemicolon. The appendix is normal. Peritoneum: There is no intraperitoneal free fluid or free air. No suspicious lymphadenopathy. Vasculature: Calcification of the aorta without aneurysm. Musculoskeletal: Degenerative changes of the spine without suspicious osseous lesion or compression fracture. Surgical changes from median sternotomy and CABG. Pelvis: The prostate gland is normal. Mild bladder wall thickening. IMPRESSION: 1. Wall thickening of the left hemicolon which could be secondary to an infectious or inflammatory colitis in the appropriate clinical setting. 2. Mild urinary bladder wall thickening. Recommend correlation with urinalysis. 3. No findings of suspicious lymphadenopathy within the chest, abdomen, or pelvis. Dictated by: Dictated on workstation # [id number]
== END ==
LOC: RAD 11:51
PROVIDERS: ATTEND Internal Medicine Hematology & Oncology
DX: C61 Malignant neoplasm of prostate (principal); N32.9 Bladder disorder, unspecified; K63.9 Disease of intestine, unspecified
CPT/HCPCS: 71260; 74177

== ENCOUNTER 2021-10-21 10:18 | Outpatient (RCR) | payer MEDICARE, MEDICAID ==
[~2021-10-21 10:18] MED LIST changes: -CATHETER FLUSH 10 ML SYR IV PRN; -HOLD METFORMIN - RECEIVED CONTRAST 20 ML VIAL IV SCH; -IOHEXOL 350 MG/ML 100 ML (OMNIPAQUE 350) VIAL IV ONE; -NS 100 ML (IVPB) BAG IV ONE
== END 2021-10-28 | disposition home or self-care (01) ==
LOC: ONC 10:18
PROVIDERS: ATTEND Internal Medicine Hematology & Oncology
DX: C61 Malignant neoplasm of prostate (principal); C67.9 Malignant neoplasm of bladder, unspecified; E03.9 Hypothyroidism, unspecified; I25.10 Atherosclerotic heart disease of native coronary artery without angina pectoris; I09.9 Rheumatic heart disease, unspecified; Z96.653 Presence of artificial knee joint, bilateral
CPT/HCPCS: G0463 ×2; 99213

== ENCOUNTER 2021-11-10 12:58 | Emergency (ER) | payer MEDICARE, MEDICAID ==
[~2021-11-10] VITALS: Ht 190 cm; Wt 114.0 kg
[2021-11-10] MEDS ORDERED: SULF1TAB38 PO (15:09)
--- NOTE | 2021-11-10 15:09 | ED Integumentary General ---
General Chief Complaint: Skin/Wound Problems Stated Complaint: RECTAL ABECSS Nursing Triage Note: ABSCESS ON BUTTOCK THAT HAS BEEN THERE FOR A YEAR BUT ONLY STARTED TO CAUSE A PROBLEM OVER THE LAST COUPLE OF DAYS. STATES IT IS PAINFUL AND NEEDS DRAINED. History of Present Illness Date Seen by Provider: Nov 10, 2021 Time Seen by Provider: 14:50 Initial Comments 66-year-old male presents for an abscess on his left buttocks that has been present intermittently for the last year. He reports over the last few days it has become tender to palpation. He has never required an I&D in the past or antibiotics. He has a history of well-controlled type 2 diabetes and valvular heart disease. 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 He denies any other complaints at this time. He has not been evaluated by his primary care provider. Timing/Duration: getting worse Severity: mild Possible Cause: no cause identified Associated Symptoms: denies symptoms Allergies and Home Medications Allergies Coded Allergies: No Known Drug Allergies (Unverified , 09/21/18) Patient Home Medication List Home Medication List Reviewed: Yes Acetaminophen (Acetaminophen) 500 Mg Tablet, 500 MG PO Q4H PRN for PAIN-MILD, (Reported) Entered as Reported by: KAYDEN GRECO on 09/21/18 09 Aspirin (Aspir 81) 81 Mg Tablet.dr, 81 MG PO DAILY, (Reported) Entered as Reported by: KAYDEN GRECO on 09/21/18 09 Atorvastatin Calcium (Atorvastatin Calcium) 40 Mg Tablet, 40 MG PO HS, (Reported) Entered as Reported by: KAYDEN GRECO on 09/21/18 09 Cephalexin (Keflex) 500 Mg Capsule, 500 MG PO TID Prescribed by: Pedro Pablo GRANADOS on 09/21/18 1242 Cyclobenzaprine HCl (Cyclobenzaprine HCl) 5 Mg Tablet, 10 MG PO TID PRN for MUSCLE SPASMS, (Reported) Entered as Reported by: KAYDEN GRECO on 09/21/18 09 Furosemide (Furosemide) 40 Mg Tablet, 40 MG PO DAILY, (Reported) Entered as Reported by: KAYDEN GREOC on 09/21/18 09 Gabapentin (Gabapentin) 300 Mg Capsule, 300 MG PO TID, (Reported) Entered as Reported by: KAYDEN GRECO on 09/21/18 09 Hydrochlorothiazide (Hydrochlorothiazide) 12.5 Mg Tablet, 12.5 MG PO HS, (Reported) Entered as Reported by: KAYDEN GRECO on 09/21/18942 Levothyroxine Sodium (Levothyroxine Sodium) 200 Mcg Tablet, 200 MCG PO DAILY, (Reported) Entered as Reported by: KAYDEN GRECO on 09/21/18942 Metoprolol Tartrate (Metoprolol Tartrate) 50 Mg Tablet, 50 MG PO NOON, (Reported) Entered as Reported by: KAYDEN GRECO on 09/21/18942 Pantoprazole Sodium (Pantoprazole Sodium) 40 Mg Tablet.dr, 40 MG PO BID, (Reported) Entered as Reported by: KAYDEN GRECO on 09/21/18942 Potassium Chloride (Potassium Chloride) 20 Meq Tablet.er, 20 MEQ PO DAILY, (Reported) Entered as Reported by: KAYDEN GRECO on 09/21/18942 Sennosides/Docusate Sodium (Senna-Docusate Sodium Tablet) 1 Each Tablet, 2 EACH PO BID, (Reported) Entered as Reported by: KAYDEN GRECO on 09/21/18942 Sulfamethoxazole/Trimethoprim (Bactrim Ds Tablet) 1 Each Tablet, 1 EACH PO BID Prescribed by: BRIANA MERINO on 11/10/21 1509 Tramadol HCl (Tramadol HCl) 50 Mg Tablet, 100 MG PO BID PRN for PAIN-MODERATE, (Reported) Entered as Reported by: KAYDEN GRECO on 09/21/18942 Review of Systems Review of Systems Constitutional: no symptoms reported, see HPI Skin: see HPI, other (Abscess left buttocks) All Other Systems Reviewed Negative Unless Noted: Yes Past Nzjfkbq-Hawaes-Jbdicd Hx Patient Social History Smoking Status: Former Smoker Substance use?: No Immunizations Up To Date COVID19 Vaccine Patient Relations Liaison: MODERNA Past Medical History Coronary Stent, Defibrillator, Valve Replacement Respiratory: No Cardiac: Yes Cardiomyopathy, Coronary Artery Disease, Heart Attack, Valvular Heart Disease Neurological: No Genitourinary: No Gastrointestinal: No Cancer: No Adverse Reaction/Blood Tranf: No Family Medical History Reviewed Nursing Family Hx Physical Exam Vital Signs Vital Signs - First Documented 11/10/21 13:20 Temp 37.1 Pulse 90 Resp 16 B/P (MAP) 117/77 (90) Pulse Ox 95 O2 Delivery Room Air Capillary Refill : Less Than 3 Seconds General Appearance: WD/WN, no apparent distress Cardiovascular: normal peripheral pulses, regular rate, rhythm Gastrointestinal: normal bowel sounds, non tender, soft Skin: normal color, warm/dry, other (Small abscess to left buttocks, mild induration no fluctuance or erythema.) Skin Problem Character: abscess Progress/Results/Core Measures Results/Orders Vital Signs/I&O 11/10/21 11/10/21 11/10/21 13:20 13:56 15:11 Temp 37.1 36.8 37.2 Pulse 90 88 78 Resp 16 20 19 B/P (MAP) 117/77 (90) 134/81 135/72 Pulse Ox 95 97 96 O2 Delivery Room Air Room Air Room Air Blood Pressure Mean: 98 Progress Progress Note : Time: 14:50 Progress Note Patient seen and evaluated, discussed abscess with the patient and his . Explained that it is not ready for an I&D at this time and may resolve with Antibiotics. In addition, with his chronic health problems and an I&D would put him at a higher risk for other infections. Discharge instructions and return precautions reviewed with the patient. All questions answered. Departure Impression Primary Impression: Abscess of buttock, left Disposition: 01 HOME, SELF-CARE Condition: Improved Departure-Patient Inst. Decision time for Depature: 15:05 Referrals: NO,LOCAL PHYSICIAN (PCP) Primary Care Physician GEMMA VILLAFANA (Family) Primary Care Physician Patient Instructions: Boil (DC) Add. Discharge Instructions: Warm moist compresses to abscess. Clean area thoroughly after bowel movements. Take antibiotics as prescribed. Call and schedule appointment with your primary care provider for Monday or Monday. Return to the emergency department for new, urgent healthcare problems. All discharge instructions reviewed with patient and/or family. Voiced understanding. Scripts Sulfamethoxazole/Trimethoprim (Bactrim Ds Tablet) 1 Each Tablet 1 EACH PO BID, #14 TAB 0 Refills Prov: BRIANA MERINO 11/10/21 BRIANA MERINO Nov 10, 2021 15:09
[2021-11-10 15:11] VITALS: BP 135/72
== END 2021-11-10 15:11 | disposition home or self-care (01) ==
LOC: EDUNIT# 12:58 → ER 13:00
DX: L02.31 Cutaneous abscess of buttock (principal); Z87.891 Personal history of nicotine dependence
CPT/HCPCS: 99282

== ENCOUNTER 2022-04-18 09:12 | Outpatient (RCR) | payer MEDICARE, MEDICAID ==
[~2022-04-18 09:12] MED LIST changes: +SULF1TAB38 PO
[2022-04-18 09:45] LABS: BASOPHILS % (AUTO) 0 % (0-10); EOSINOPHILS # (AUTO) 0.1 10^3/uL (0.0-0.3); EOSINOPHILS % (AUTO) 1 % (0-10); HEMATOCRIT 42 % (40-54); HEMOGLOBIN 13.3 g/dL (13.3-17.7); LYMPHOCYTES # (AUTO) 1.3 10^3/uL (1.0-4.0); LYMPHOCYTES % (AUTO) 16 % (12-44); MEAN CORPUSCULAR HEMOGLOBIN 27 pg (25-34); MEAN CORPUSCULAR HGB CONC 32 g/dL (32-36); MEAN CORPUSCULAR VOLUME 84 fL (80-99); MEAN PLATELET VOLUME 9.1 fL (9.0-12.2); MONOCYTES # (AUTO) 0.5 10^3/uL (0.0-1.0); MONOCYTES % (AUTO) 7 % (0-12); NEUTROPHILS % (AUTO) 76 % (42-75); PLATELET COUNT 315 10^3/uL (130-400)
[2022-04-18 10:02] LABS: ALBUMIN 3.6 GM/DL (3.2-4.5); BILIRUBIN,TOTAL 0.7 MG/DL (0.1-1.0); CALCIUM 8.7 MG/DL (8.5-10.1); CREATININE SERUM 0.88 MG/DL (0.60-1.30); POTASSIUM 4.1 MMOL/L (3.6-5.0)
== END 2022-04-30 | disposition home or self-care (01) ==
LOC: ONC 09:12
PROVIDERS: ATTEND Internal Medicine Hematology & Oncology
DX: C61 Malignant neoplasm of prostate (principal); C67.9 Malignant neoplasm of bladder, unspecified; E03.9 Hypothyroidism, unspecified; I25.10 Atherosclerotic heart disease of native coronary artery without angina pectoris; I09.9 Rheumatic heart disease, unspecified; Z96.653 Presence of artificial knee joint, bilateral
CPT/HCPCS: 36415; 80053; 85025; 99213

== ENCOUNTER → 2022-07-05 | Outpatient (CLI) | payer MEDICARE, MEDICAID ==
[~2022-07-05] MED LIST changes: +HOLD METFORMIN - RECEIVED CONTRAST 20 ML VIAL IV SCH; +IOHEXOL 350 MG/ML 100 ML (OMNIPAQUE 350) VIAL IV ONE; +NS 100 ML (IVPB) BAG IV ONE
--- NOTE | 2022-07-05 16:57 | Diagnostic Imaging Report ---
EXAMINATION: CT chest, abdomen and pelvis with intravenous contrast. TECHNIQUE: Multiple contiguous axial images were obtained through the chest, abdomen and pelvis after the uneventful administration of intravenous contrast. All CT scans use one or more of the following dose optimizing techniques: automated exposure control, MA and/or KvP adjustment based on patient size and exam type or iterative reconstruction. HISTORY: History of prostate cancer. Follow-up. No new symptoms. COMPARISON: None available. FINDINGS: CT CHEST: The heart size is within normal limits. No pericardial effusion is present. A left pectoral pacemaker is in place. Prosthetic mitral valve is seen. Stable mildly prominent mediastinal lymph nodes. Centrilobular and paraseptal emphysema is seen, greatest in the lung apices. The lungs demonstrate no pulmonary nodules or masses. There are no focal areas of consolidation. No central endobronchial obstructing lesions are identified. There are no pleural effusions or pneumothorax. The osseous structures demonstrate no acute abnormalities. CT ABDOMEN AND PELVIS: Bilateral cortical cysts are seen in the kidneys. No solid renal mass. No hydronephrosis or obstructing calculi. The urinary bladder is nondistended. There is mild bladder wall thickening. The liver, spleen, pancreas, and adrenal glands have a normal appearance. The bowel loops are nondilated. There is stable wall thickening and inflammation involving the rectosigmoid colon and mesorectal fat. No pathologically enlarged lymphadenopathy is present. There is no free fluid or free air. The osseous structures demonstrate no acute abnormalities. There is calcified aortic and iliac atherosclerotic plaque without aneurysm. IMPRESSION: 1. Stable appearance of the chest, abdomen and pelvis. No evidence of pathologically enlarged lymphadenopathy or osseous metastatic disease. 2. Stable wall thickening and inflammation involving the rectosigmoid colon and mesorectal fat. No associated lymphadenopathy. Findings are likely related to post-treatment changes, although colitis may also be present. No bowel obstruction. 3. Centrilobular and paraseptal emphysema, greatest in the lung apices. Dictated by: Dictated on workstation # [id number]
== END ==
LOC: RAD 12:35
PROVIDERS: ATTEND Internal Medicine Hematology & Oncology
DX: J43.2 Centrilobular emphysema (principal); J43.8 Other emphysema; K63.89 Other specified diseases of intestine; C61 Malignant neoplasm of prostate
CPT/HCPCS: 71260; 74177

== ENCOUNTER 2022-07-14 13:54 | Outpatient (RCR) | payer MEDICARE, MEDICAID ==
[2022-06-29 14:23] LABS: BASOPHILS % (AUTO) 0 % (0-10); EOSINOPHILS # (AUTO) 0.1 10^3/uL (0.0-0.3); EOSINOPHILS % (AUTO) 2 % (0-10); HEMATOCRIT 42 % (40-54); HEMOGLOBIN 13.3 g/dL (13.3-17.7); LYMPHOCYTES # (AUTO) 1.6 10^3/uL (1.0-4.0); LYMPHOCYTES % (AUTO) 24 % (12-44); MEAN CORPUSCULAR HEMOGLOBIN 26 pg (25-34); MEAN CORPUSCULAR HGB CONC 32 g/dL (32-36); MEAN CORPUSCULAR VOLUME 81 fL (80-99); MEAN PLATELET VOLUME 9.5 fL (9.0-12.2); MONOCYTES # (AUTO) 0.5 10^3/uL (0.0-1.0); MONOCYTES % (AUTO) 7 % (0-12); NEUTROPHILS # (AUTO) 4.6 10^3/uL (1.8-7.8); NEUTROPHILS % (AUTO) 67 % (42-75); PLATELET COUNT 217 10^3/uL (130-400); WHITE BLOOD COUNT 6.9 10^3/uL (4.3-11.0)
[2022-06-29 14:33] LABS: CLARITY,URINE CLOUDY; COLOR,URINE BROWN; GLUCOSE, URINE (UA) NEGATIVE (NEGATIVE); KETONES,URINE NEGATIVE (NEGATIVE); LEUKOCYTE ESTERASE ,URINE NEGATIVE (NEGATIVE); NITRITE,URINE NEGATIVE (NEGATIVE); PROTEIN,URINE TRACE (NEGATIVE)
[2022-06-29 14:45] LABS: BILIRUBIN,URINE NEGATIVE (NEGATIVE)
[2022-06-29 14:46] LABS: BACTERIA,URINE NEGATIVE /HPF; RBC,URINE TNTC /HPF; SQUAMOUS EPITHELIAL CELL,UR 0-2 /HPF; WBC,URINE 0-2 /HPF
[2022-06-29 14:57] LABS: ALBUMIN 3.7 GM/DL (3.2-4.5); BILIRUBIN,TOTAL 1.2 MG/DL (0.1-1.0); CALCIUM 9.2 MG/DL (8.5-10.1); CREATININE SERUM 0.8 MG/DL (0.60-1.30); POTASSIUM 4.3 MMOL/L (3.6-5.0)
[~2022-07-14 13:54] MED LIST changes: -HOLD METFORMIN - RECEIVED CONTRAST 20 ML VIAL IV SCH; -IOHEXOL 350 MG/ML 100 ML (OMNIPAQUE 350) VIAL IV ONE; -NS 100 ML (IVPB) BAG IV ONE
== END 2022-07-29 | disposition home or self-care (01) ==
LOC: ONC 13:54
PROVIDERS: ATTEND Internal Medicine Hematology & Oncology
DX: C61 Malignant neoplasm of prostate (principal); C67.9 Malignant neoplasm of bladder, unspecified; E03.9 Hypothyroidism, unspecified; I25.10 Atherosclerotic heart disease of native coronary artery without angina pectoris; I09.9 Rheumatic heart disease, unspecified; Z96.653 Presence of artificial knee joint, bilateral
CPT/HCPCS: 36415; 80053; 81000; 85025

== ENCOUNTER 2022-09-22 13:20 | Outpatient (RCR) | payer MEDICARE, MEDICAID ==
[2022-09-22 13:40] LABS: BASOPHILS % (AUTO) 0 % (0-10); EOSINOPHILS # (AUTO) 0.1 10^3/uL (0.0-0.3); EOSINOPHILS % (AUTO) 2 % (0-10); HEMATOCRIT 41 % (40-54); HEMOGLOBIN 12.9 g/dL (13.3-17.7); LYMPHOCYTES # (AUTO) 1.7 10^3/uL (1.0-4.0); LYMPHOCYTES % (AUTO) 25 % (12-44); MEAN CORPUSCULAR HEMOGLOBIN 25 pg (25-34); MEAN CORPUSCULAR HGB CONC 32 g/dL (32-36); MEAN CORPUSCULAR VOLUME 80 fL (80-99); MEAN PLATELET VOLUME 9.9 fL (9.0-12.2); MONOCYTES # (AUTO) 0.5 10^3/uL (0.0-1.0); MONOCYTES % (AUTO) 8 % (0-12); NEUTROPHILS # (AUTO) 4.4 10^3/uL (1.8-7.8); NEUTROPHILS % (AUTO) 65 % (42-75); PLATELET COUNT 208 10^3/uL (130-400); WHITE BLOOD COUNT 6.8 10^3/uL (4.3-11.0)
[2022-09-22 13:43] LABS: BILIRUBIN,URINE NEGATIVE (NEGATIVE); CLARITY,URINE CLEAR; COLOR,URINE YELLOW; GLUCOSE, URINE (UA) NEGATIVE (NEGATIVE); KETONES,URINE NEGATIVE (NEGATIVE); LEUKOCYTE ESTERASE ,URINE NEGATIVE (NEGATIVE); NITRITE,URINE NEGATIVE (NEGATIVE); PROTEIN,URINE TRACE (NEGATIVE)
[2022-09-22 13:56] LABS: BACTERIA,URINE NEGATIVE /HPF; WBC,URINE 0-2 /HPF
[2022-09-22 14:01] LABS: ALBUMIN 3.8 GM/DL (3.2-4.5)
[2022-09-22 14:02] LABS: POTASSIUM 4.4 MMOL/L (3.6-5.0)
[2022-09-22 14:03] LABS: CALCIUM 8.9 MG/DL (8.5-10.1)
[2022-09-22 14:04] LABS: TOTAL PROTEIN 6.8 GM/DL (6.4-8.2)
[2022-09-22 14:06] LABS: BILIRUBIN,TOTAL 1.2 MG/DL (0.1-1.0)
[2022-09-22 14:08] LABS: CREATININE SERUM 0.82 MG/DL (0.60-1.30)
== END 2022-09-28 | disposition home or self-care (01) ==
LOC: ONC 13:20
PROVIDERS: ATTEND Internal Medicine Hematology & Oncology
DX: C61 Malignant neoplasm of prostate (principal); C67.9 Malignant neoplasm of bladder, unspecified; E03.9 Hypothyroidism, unspecified; I25.10 Atherosclerotic heart disease of native coronary artery without angina pectoris; I09.9 Rheumatic heart disease, unspecified; Z96.653 Presence of artificial knee joint, bilateral
CPT/HCPCS: 36415; 80053; 81000; 85025

== ENCOUNTER 2022-12-22 12:53 | Outpatient (RCR) | payer MEDICARE, MEDICAID ==
[2022-12-16 09:18] LABS: BASOPHILS % (AUTO) 0 % (0-10); EOSINOPHILS # (AUTO) 0.1 10^3/uL (0.0-0.3); EOSINOPHILS % (AUTO) 1 % (0-10); HEMATOCRIT 41 % (40-54); HEMOGLOBIN 12.5 g/dL (13.3-17.7); LYMPHOCYTES # (AUTO) 1.5 10^3/uL (1.0-4.0); LYMPHOCYTES % (AUTO) 19 % (12-44); MEAN CORPUSCULAR HEMOGLOBIN 24 pg (25-34); MEAN CORPUSCULAR HGB CONC 30 g/dL (32-36); MEAN CORPUSCULAR VOLUME 81 fL (80-99); MEAN PLATELET VOLUME 10.3 fL (9.0-12.2); MONOCYTES # (AUTO) 0.4 10^3/uL (0.0-1.0); MONOCYTES % (AUTO) 5 % (0-12); NEUTROPHILS # (AUTO) 5.9 10^3/uL (1.8-7.8); NEUTROPHILS % (AUTO) 74 % (42-75); PLATELET COUNT 219 10^3/uL (130-400); WHITE BLOOD COUNT 7.9 10^3/uL (4.3-11.0)
[2022-12-16 09:35] LABS: BACTERIA,URINE NEGATIVE /HPF; BILIRUBIN,URINE NEGATIVE (NEGATIVE); CLARITY,URINE CLEAR; COLOR,URINE YELLOW; GLUCOSE, URINE (UA) NEGATIVE (NEGATIVE); KETONES,URINE NEGATIVE (NEGATIVE); LEUKOCYTE ESTERASE ,URINE NEGATIVE (NEGATIVE); NITRITE,URINE NEGATIVE (NEGATIVE); PROTEIN,URINE TRACE (NEGATIVE); RBC,URINE 0-2 /HPF
[2022-12-16 09:37] LABS: BILIRUBIN,TOTAL 1.4 MG/DL (0.1-1.0); CALCIUM 8.7 MG/DL (8.5-10.1); CREATININE SERUM 0.85 MG/DL (0.60-1.30); POTASSIUM 3.9 MMOL/L (3.6-5.0); TOTAL PROTEIN 7.2 GM/DL (6.4-8.2)
[~2022-12-22 12:53] MED LIST changes: +POTA-330 PO; -POTA-51 PO
== END 2022-12-29 | disposition home or self-care (01) ==
LOC: ONC 12:53
PROVIDERS: ATTEND Internal Medicine Hematology & Oncology
DX: C61 Malignant neoplasm of prostate (principal); C67.9 Malignant neoplasm of bladder, unspecified; E03.9 Hypothyroidism, unspecified; I25.10 Atherosclerotic heart disease of native coronary artery without angina pectoris; I09.9 Rheumatic heart disease, unspecified; Z96.653 Presence of artificial knee joint, bilateral
CPT/HCPCS: 36415; 80053; 81000; 85025; 99214

== ENCOUNTER → 2023-03-24 | Outpatient (CLI) | payer MEDICARE, MEDICAID ==
[~2023-03-24] MED LIST changes: +HOLD METFORMIN - RECEIVED CONTRAST 20 ML VIAL IV SCH; +IOHEXOL 350 MG/ML 100 ML (OMNIPAQUE 350) VIAL IV ONE; +NS 100 ML (IVPB) BAG IV ONE
--- NOTE | 2023-03-24 11:16 | Diagnostic Imaging Report ---
PROCEDURE: CT chest, abdomen, and pelvis with contrast. TECHNIQUE: Multiple contiguous axial images were obtained through the chest, abdomen, and pelvis after the administration of intravenous contrast. Auto Exposure Controls were utilized during the CT exam to meet ALARA standards for radiation dose reduction. INDICATION: Prostate carcinoma, annual follow-up. Correlation is made with prior CT from 07/05/2022. CT CHEST: Postoperative changes of median sternotomy are noted. Cardiac defibrillator remains in place. No axillary lymphadenopathy is detected. Mildly prominent mediastinal lymph nodes appear similar to prior exam. No hilar lymphadenopathy is detected. There is no pericardial or pleural fluid. Paraseptal and centrilobular emphysematous changes are again noted. No pulmonary infiltrates, nodules or masses are detected. CT abdomen and pelvis: No discrete liver mass is identified. Gallbladder is unremarkable. There is no biliary ductal dilatation. The pancreas and spleen are unremarkable. No adrenal mass is detected. Bilateral renal cortical low-attenuation lesions are noted, largest on the left and consistent with cysts. Aorta is calcified but nonaneurysmal. No central retroperitoneal or mesenteric lymphadenopathy is identified. Bowel loops appear normal caliber and nonobstructed. There is no free fluid or fluid collection identified. No pelvic lymphadenopathy is identified. The bladder is unremarkable. Prostate is unremarkable. Bony structures are without osteolytic or blastic lesions. IMPRESSION: Continued stable CT of the chest, abdomen and pelvis when compared with prior exam from 07/05/2022. Mildly prominent mediastinal lymph nodes remain stable. There is no abdominal or pelvic lymphadenopathy or evidence of metastatic disease. Dictated by: Dictated on workstation # [id number]
== END ==
LOC: RAD 09:14
PROVIDERS: ATTEND Internal Medicine Hematology & Oncology
DX: C61 Malignant neoplasm of prostate (principal)
CPT/HCPCS: 71260; 74177

== ENCOUNTER 2023-03-27 12:57 | Outpatient (RCR) | payer MEDICARE, MEDICAID ==
[~2023-03-27 12:57] MED LIST changes: -HOLD METFORMIN - RECEIVED CONTRAST 20 ML VIAL IV SCH; -IOHEXOL 350 MG/ML 100 ML (OMNIPAQUE 350) VIAL IV ONE; -NS 100 ML (IVPB) BAG IV ONE
[2023-03-27 13:24] LABS: BASOPHILS % (AUTO) 0 % (0-10); EOSINOPHILS # (AUTO) 0.2 10^3/uL (0.0-0.3); EOSINOPHILS % (AUTO) 3 % (0-10); HEMATOCRIT 40 % (40-54); HEMOGLOBIN 12.3 g/dL (13.3-17.7); LYMPHOCYTES # (AUTO) 1.5 10^3/uL (1.0-4.0); LYMPHOCYTES % (AUTO) 20 % (12-44); MEAN CORPUSCULAR HEMOGLOBIN 24 pg (25-34); MEAN CORPUSCULAR HGB CONC 31 g/dL (32-36); MEAN CORPUSCULAR VOLUME 78 fL (80-99); MEAN PLATELET VOLUME 9.6 fL (9.0-12.2); MONOCYTES # (AUTO) 0.5 10^3/uL (0.0-1.0); MONOCYTES % (AUTO) 6 % (0-12); NEUTROPHILS # (AUTO) 5.1 10^3/uL (1.8-7.8); NEUTROPHILS % (AUTO) 70 % (42-75); PLATELET COUNT 246 10^3/uL (130-400); WHITE BLOOD COUNT 7.3 10^3/uL (4.3-11.0)
[2023-03-27 13:42] LABS: ALBUMIN 3.8 GM/DL (3.2-4.5); BILIRUBIN,TOTAL 1.6 MG/DL (0.1-1.0); CALCIUM 8.8 MG/DL (8.5-10.1); CREATININE SERUM 0.8 MG/DL (0.60-1.30); POTASSIUM 4.3 MMOL/L (3.6-5.0); TOTAL PROTEIN 6.8 GM/DL (6.4-8.2)
[2023-03-27 14:40] LABS: CLARITY,URINE SLIGHTLY CLOUDY; COLOR,URINE YELLOW; GLUCOSE, URINE (UA) NEGATIVE (NEGATIVE); KETONES,URINE NEGATIVE (NEGATIVE); NITRITE,URINE NEGATIVE (NEGATIVE); PH,URINE 5.5 (5-9); PROTEIN,URINE TRACE (NEGATIVE)
[2023-03-27 14:41] LABS: BILIRUBIN,URINE 1+ (NEGATIVE); LEUKOCYTE ESTERASE ,URINE NEGATIVE (NEGATIVE); WBC,URINE 0-2 /HPF
[2023-03-27 14:42] LABS: BACTERIA,URINE TRACE /HPF
[2023-03-27 14:43] LABS: YEAST,URINE FEW /HPF
== END 2023-03-30 | disposition home or self-care (01) ==
LOC: ONC 12:57
PROVIDERS: ATTEND Internal Medicine Hematology & Oncology
DX: C61 Malignant neoplasm of prostate (principal); C67.9 Malignant neoplasm of bladder, unspecified; E03.9 Hypothyroidism, unspecified; I25.10 Atherosclerotic heart disease of native coronary artery without angina pectoris; I09.9 Rheumatic heart disease, unspecified; D50.9 Iron deficiency anemia, unspecified; Z96.653 Presence of artificial knee joint, bilateral
CPT/HCPCS: 80053; 81000; 82728; 83540; 83550; 85025; 87088; 99214